=== PATIENT | female | born 1990 | race Caucasian/White ===

== ENCOUNTER 2023-05-21 08:49 | Outpatient (AMB) | payer OTHER, SELFPAY ==
[2023-05-21 09:05] VITALS: BP 128/74; PULSE 82; TEMP 36.6; O2SAT 97; BMI 21.9
--- NOTE | 2023-05-21 09:05 | AM.OFFWIN_ITS ---
Intake Vital Signs 05/21/23 09:05 Height 5 ft 7 in Weight 140 lb BMI 21.9 BP 128/74 Blood Pressure Location Lt brachial Position Sitting Pulse 82 Pulse Source Pulse Oximeter Temp 97.9 F Temp Source Oral Pulse Oximetry (%) 97 Intake Visit Reasons: [employer]/right bicep pain (lobby) Intake Note: pt is here for c.o right bicep pain, patient states she was putting her child in the car and she felt a pop on saturday night. pt is 6 weeks . Patient Tobacco Use Status: Never used Tobacco Allergies penicillamine Allergy (Mild, Verified 05/21/23 09:10) Rash Medication List - Last Reconciled 05/21/23 by Julio Menjivar MD sertraline 25 mg PO DAILY Do you need a note to return to daycare/school/sports/work: Yes HPI [employer]/right bicep pain (lobby) HPI Details Patient is five weeks . Patient has sprained her right arm in the last week. She has range of motion but painful to move the arm. PFSH Social History Patient Tobacco Use Status: Never used Tobacco Physical Exam Vital Signs: Last Vital Signs Temp 97.9 F 05/21/23 09:05 Pulse 82 05/21/23 09:05 BP 128/74 05/21/23 09:05 Pulse Ox 97 05/21/23 09:05 BMI result Body Mass Index 21.9 Extrem Other: Right arm: No visible bruising. Full range of motion including flexion, extension, internal and external rotation at the right shoulder. Assessment & Plan Assessment & Plan (1) Sprain of right shoulder: Code(s): S43.401A - Unspecified sprain of right shoulder joint, initial encounter Plan: Self-limiting illness. [id number] Tylenol as needed. Sling supplied. Coding Level of Care Code Est Pt Level 3 (59189) Diagnoses Sprain of right shoulder S43.401A
== END 2023-05-21 10:09 | disposition home or self-care (01) ==
PROVIDERS: Visit Provider Internal Medicine
DX: S43.401A Unspecified sprain of right shoulder joint, initial encounter (principal)
CPT/HCPCS: 99213

== ENCOUNTER 2023-08-13 16:24 | Emergency (ER) | payer OTHER, SELFPAY ==
--- NOTE | 2023-08-13 17:24 | PC.NURSE ---
pt told registration she was feeling better and she LWT
== END 2023-08-13 17:36 | disposition left against medical advice (07) ==
PROVIDERS: Emergency Provider Emergency Medicine
DX: Z53.21 Procedure and treatment not carried out due to patient leaving prior to being seen by health care provider (principal); T78.40XA Allergy, unspecified, initial encounter; R21 Rash and other nonspecific skin eruption; R06.02 Shortness of breath